=== PATIENT | male | born 2000 | race Caucasian/White ===

== ENCOUNTER 2023-12-10 18:04 | Emergency (ER) | payer BC, SELFPAY ==
--- NOTE | 2023-12-10 18:07 | ED.URI ---
HPI - URI/Sore Throat General Stated Complaint: Sore Throat/Fever/Chills Source: patient and RN notes reviewed Mode of arrival: ambulatory Limitations: no limitations History of Present Illness HPI Narrative: Patient is a 23-year-old male who presents to the [facility] with complaints of a 3 day history of sore throat. He states that he developed fever this morning and has been experiencing chills. He denies headache. He endorses some increased fatigue. Denies abdominal pain, nausea, vomiting, diarrhea. Unsure of any known sick contacts. Review of Systems Review of Systems: CONSTITUTIONAL: Reports fever, chills, or sweats. EYES: Denies visual changes, redness, or discharge. ENT: Denies otalgia. Reports sore throat. CARDIOVASCULAR: Denies chest pain, palpitations, or edema. RESPIRATORY: Denies cough or dyspnea. GASTROINTESTINAL: Denies abdominal pain, nausea, vomiting, or diarrhea. GENITOURINARY: Denies dysuria or hematuria. SKIN: Denies rash or itching. MUSCULOSKELETAL: Denies back pain, joint pain, or myalgia. NEUROLOGIC: Denies headache, numbness, or weakness. Pertinent positives per HPI. PMFSH Comments At the time of my signature, I reviewed and agree with the nursing past medical, surgical, social, and family history. There is no relevant family history pertinent to the patient complaint. Exam Narrative: GENERAL: This is a well-nourished, well-developed patient, in no apparent distress. HEAD: normocephalic, atraumatic. EYES: Sclera clear/white. Vision is grossly intact. EARS: External ears normal. Hearing grossly intact. NOSE: External nose normal with no obvious nasal discharge, nares without redness, no rhinorrhea. THROAT: Mucous membranes moist, Oropharyngeal erythema with exudate without ulceration. NECK: Neck supple, non-tender without lymphadenopathy, masses or thyromegaly. CARDIOVASCULAR: Regular rate and rhythm without murmurs, gallops, or rubs. RESPIRATORY: Clear to auscultation. Breath sounds equal bilaterally. No wheezes, rales, or rhonchi. GASTROINTESTINAL: Abdomen soft, non-tender, nondistended. Bowel sounds are active. No hepato-splenomegaly, or palpable masses. No guarding. SKIN: warm, intact with no suspicious lesions or rash, good texture and turgor. NEURO: awake, alert, and oriented to person, place and time. There were no obvious focal neurologic abnormalities. Course Course Level of Care: Express Care Visit Vital Signs Vital signs: Vital Signs Temperature 98.4 F 12/10/23 18:13 Pulse Rate 78 12/10/23 18:13 Respiratory Rate 16 12/10/23 18:13 Blood Pressure 110/81 12/10/23 18:13 Pulse Oximetry 100 12/10/23 18:13 Oxygen Delivery Room Air 12/10/23 18:13 Temperature 98.4 F 12/10/23 18:13 Pulse Rate 78 12/10/23 18:13 Respiratory Rate 16 12/10/23 18:13 Blood Pressure 110/81 12/10/23 18:13 Pulse Oximetry 100 12/10/23 18:13 Oxygen Delivery Room Air 12/10/23 18:13 Reviewed MDM - URI/Sore Throat MDM Narrative Medical decision making narrative: Rapid strep is negative in the office; however we will send to the lab for confirmation; there is a small percentage chance that it can come back positive; if it is, we will call you in 2-3days; and your prescription will be call in to your pharmacy. However, there is NO indication for antibiotic at this time. -Increase your fluids and Vitamin C. -Oral rinses such as: Salt water gargles and/or may use topical anesthetic (eg. Chloraseptic spray) or lozenges to relieve dryness or throat pain. -Take tylenol and ibuprofen as needed for pain and fever as directed. -Frequent hand washing or hand clinical neuropsychologist is one of the best ways to prevent spread of infection. -Follow up with primary care provider in 2-3 days if condition is not improving or seek ER visit if your child starts breathing fast/has trouble breathing, is not drinking enough fluids, muffle voice, difficulty opening the mouth or will not wake up or will
[2023-12-10 18:13] VITALS: BP 110/81; PULSE 78; RESP 16; TEMP 36.9; O2SAT 100
== END 2023-12-10 18:35 | disposition home or self-care (01) ==
PROVIDERS: Emergency Provider Nurse Practitioner
DX: J02.8 Acute pharyngitis due to other specified organisms (principal)
CPT/HCPCS: 87081; 87880; 99213; G0463